=== PATIENT | male | born 1980 | race Caucasian/White ===

== ENCOUNTER → 2020-05-16 | Outpatient (CLI) | payer OTHER | LOC: SJCVCIMAG 07:35 | PROVIDERS: ATTEND Internal Medicine | DX: I07.1 Rheumatic tricuspid insufficiency (principal); G47.33 Obstructive sleep apnea (adult) (pediatric); E66.9 Obesity, unspecified ==

== ENCOUNTER → 2020-06-13 | Outpatient (CLI) | payer BC ==
[~2020-06-13] VITALS: Ht 185.4 cm; Wt 223.6 kg
[~2020-06-13] MED LIST: CLARITIN10 MG PO; INDOMETHACIN 5050 M1 PO; LOPRESSOR50 MG PO; PROTONIX40 M2 PO; ROSUVASTATIN CA10 MG PO
[2020-06-13 10:39] VITALS: BP 138/66
[2020-06-13 11:22] LABS: HEMATOCRIT 38.5 % (42.0-52.0); HEMOGLOBIN 12.4 gm/dL (14.0-18.0); MCH 26.3 pg (26.0-34.0); MCHC 32.1 g/dL (28.0-37.0); MCV 81.9 fL (80.0-100.0); RBC 4.71 mil/uL (4.50-6.00); RDW 15.2 % (10.5-14.5); WBC 6.6 thou/uL (4.0-11.0)
[2020-06-13 11:34] LABS: CALCIUM 8.6 mg/dL (8.5-10.1); CREATININE 0.8 mg/dL (0.7-1.3); POTASSIUM 4.2 mmol/L (3.5-5.1)
--- NOTE | 2020-06-13 12:48 | EKG ---
[facility] [address] [place] [address] ELECTROCARDIOGRAM REPORT Name: GABRIELLE PAREDES Room #: REG [facility]#: [id number] Admission: 06/13/20 Attend Phys: Loco Toledo Discharge: Date of : 80 Report #: [id number] THIS REPORT FOR: cc: Dion Alcaraz John E. DO Santiago, Patrick MD [facility] ~ THIS REPORT FOR: //name// [facility] Test Date: 2020-06-13 Test Time: 10:38:59 Pat Name: GABRIELLE PAREDES Department: Room: Gender: Evening Sitter: [facility] : 1980 Requested By: Loco Toledo Order Number: [id number] MD: Steven Ayon Measurements Intervals [place] Rate: 81 P: 51 OK: 203 QRS: 39 QRSD: 106 T: 24 QT: 359 QTc: 417 Interpretive Statements Sinus rhythm Borderline prolonged OK interval No previous ECG available for comparison Electronically Signed On 06-13-2020 12:48:15 CDT by Steven Ayon [email or web address] <ELECTRONICALLY SIGNED> By: Steven Ayon MD, FACC 06/13/20 1248 1038 1038 Steven Ayon MD, FAC /EPI
--- NOTE | 2020-06-20 11:34 | CATHLAB ---
[facility] [address] [address] INVASIVE PROCEDURE REPORT Name: LENAANANATASHA Matthews Room #: REG [facility]#: [id number] Admission: 06/13/20 Attend Phys: Loco Toledo Discharge: Date of : 80 Report #: [id number] THIS REPORT FOR: cc: Dion Alcaraz John E. DO Lammoglia, Francisco J. MD ~ APPROVED REPORT Study performed: 06/13/2020 11:42:45 Patient Details Patient Status: Out-Patient Room #: The patient is a 40 year-old male Event Personnel Loco Toledo Scientific Software Engineer, Clara Moreland RN RN, Maryellen Ramires RTR, Daniel Mcwilliams Roberta Monitor Procedures Performed Art Access - R femoral artery* Art Access - R radial artery Left Heart Cath w/or w/o Coronaries [id number] [facility] [address] Initial Mod Sed Same Phys/QHP [facility] [id number] 13301 Mod Sed Same Phys/QHP 927102, supervision of conscious sedation Indication Chest pain Procedure Narrative The Right Groin^ was infiltrated with 1% Lidocaine subcutaneous anesthesia. A TRANSRADIAL SLENDER 6F GLIDESHEATH KIT #[id number] sheath was inserted into the Right Radial Artery^. Coronary angiography was performed using coronary diagnostic catheters. The right coronary system was accessed and visualized with a 5FR JR 4 #[id number] catheter. The left coronary system was accessed and visualized with a 6FR AL II #[id number] catheter. The left ventricle was accessed and visualized with a 5FR JR 4 #[id number] catheter. Intraoperative Conscious Sedation Sedation start time: 1232 Case end Time: 1410 Versed 4 mg Fluoro Time: 15.19 minutes [facility] [address] [address] INVASIVE PROCEDURE REPORT Name: GABRIELLE PAREDES [id number] Admission: 06/13/20 Attend Phys: Loco Muhammad Discharge: Date of : 80 Report #: [id number] Dose: DAP 57645.20 cGycm2 3439 mGy Contrast Type and Amount: Omnipaque 40 ml Coronary Angiography The patient's coronary anatomy is right dominant. Diagnostic Cath Left Main Moderate to large caliber vessel of normal origin trifurcates LAD,Ramus and LCX vessel.No significant lesions noted LAD moderate caliber type I vessel coursing in anterior interventricular sulcus giving rise to diagonals and septal branches free of high grade disease. Circumflex small caliber vessel with luminal irregularities free of high grade lesions. it courses posteriorly where first marginal is a posterior wall vessel. OM1 small vessel without without high grade lesions Right Coronary large caliber vessel of normal origin has a small segement proximally of moderate irregularities.The tightest point is eccentric at 50%, the vessel continues giving rise to right atrial and ventricular branches. At the crux of the heart a moderate size PDA arises and continues towards the apex free of significant lesions. The distal RCA consist of plvb without high grade lesions R PDA moderate caliber free of highgrade disease Ramus moderate caliber vessel coursing in the lateral wall free of high grade lesions Left Ventriculography Left Ventriculography was not performed. Hemodynamics The aortic pressure is 137/86 mmHg with a mean of 113 mmHg. The left ventricular pressure is 134/28 mmHg with a mean of mmHg. The left ventricular end diastolic pressure is 32 mmHg. Conclusion 1.Coronary Artery Disease moderate, single vessel consisting of moderate RCA lesion 2. Abnormal Hemodynamics with elevated LV end diastolic pressure Recommendations [facility] [address] [address] INVASIVE PROCEDURE REPORT Name: GABRIELLE PAREDES Room #: REG [facility]#: [id number] Admission: 06/13/20 Attend Phys: Loco Muhammad Discharge: Date of : 80 Report #: [id number] Cardiac Risk Reduction Program Medical Therapy <ELECTRONICALLY SIGNED> By: Loco Toledo MD 06/20/20 1134 1134 1134 Loco Toledo MD /INF
== END | disposition home or self-care (01) ==
LOC: CATH 09:33
PROVIDERS: ATTEND Internal Medicine
DX: R07.9 Chest pain, unspecified (principal); I25.10 Atherosclerotic heart disease of native coronary artery without angina pectoris; I11.0 Hypertensive heart disease with heart failure; I50.30 Unspecified diastolic (congestive) heart failure; E66.01 Morbid (severe) obesity due to excess calories; Z98.890 Other specified postprocedural states; Z79.899 Other long term (current) drug therapy; Z87.891 Personal history of nicotine dependence